=== PATIENT | male | born 1955 | race Caucasian/White ===

== ENCOUNTER 2024-08-15 14:46 | Emergency (ER) | payer OTHER, MEDICAID, SELFPAY ==
[2024-08-15 14:58] VITALS: BP 108/68; PULSE 98; RESP 18; TEMP 36.8; O2SAT 95
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
[2024-08-15 15:44] LABS: Basophils % 0.6 %; Eosinophils # 0.5 10^3/uL (0.0-0.8); Eosinophils % 6.8 %; Hematocrit 33.2 % (37-53); Lymphocytes # 1.9 10^3/uL (0.8-4.8); Lymphocytes % 28.4 %; Mean Corpuscular HGB Conc 31.3 g/dL (30-55); Mean Corpuscular Hemoglobin 28.7 pg (27-33); Mean Corpuscular Volume 91.5 fl (82-101); Mean Platelet Volume 9.3 fL (7.4-10.4); Monocytes # 0.9 10^3/uL (0.2-0.9); Monocytes % 13.1 %; Neutrophils # 3.35 10^3/uL (1.8-7.7); Neutrophils % 50.8 %; Nucleated Red Blood Cells % 0 %; Platelet Count 289 10^3/cmm (157-399); Red Blood Count 3.63 10^6/uL (3.85-5.65); Red Cell Distribution Width 14.8 % (12.1-15.1); White Blood Count 6.59 10^3/uL (3.29-11.43)
--- NOTE | 2024-08-15 16:01 | ECG_ITS ---
[facility] Test Date: 2024-08-15 Pat Name: Tray Denny Department: Room: Gender: Male Electrical Intern: : 1955 Requested By: Kia Saravia Order Number: [id number] Reading MD: Measurements Intervals [place] Rate: 92 P: 57 WI: 159 QRS: 44 QRSD: 81 T: 5 QT: 348 QTc: 431 Interpretive Statements SINUS RHYTHM POSSIBLE ANTERIOR MYOCARDIAL INFARCTION , PROBABLY OLD [30 ms Q WAVE IN V3/V4, OR R < 0.2 mV IN V4] POSSIBLE INFERIOR MYOCARDIAL INFARCTION , PROBABLY OLD [30 ms Q WAVE IN II/aVF] [email or web address]
[2024-08-15 16:21] LABS: Alanine Aminotransferase 6 U/L (0-41); Albumin Level 3.7 g/dL (3.5-5.2); Alkaline Phosphatase 84 U/L (40-130); Anion Gap 17.8 (5-19); Aspartate Amino Transferase 13 U/L (0-40); Blood Urea Nitrogen 7 mg/dL (8-23); Calcium 9.1 mg/dL (8.5-10.5); Carbon Dioxide 21 mmol/L (22-29); Chloride 103 mmol/L (98-107); Globulin 2.9 g/dL (1.3-4.6); Glomerular Filtration Rate 133.6 mL/min (90-130); Glucose 89 mg/dL (65-115); Osmolality Calculated 283 mOsm/kg (285-295); Potassium 3.8 mmol/L (3.5-5.1); Sodium 138 mmol/L (136-145); Thyroid Stimulating Hormone 3.18 uIU/mL (0.27-4.20); Total Bilirubin 0.2 mg/dL (0.15-1.2); Total Protein 6.6 g/dL (6.6-8.7)
[2024-08-15 16:25] LABS: Acetaminophen < 5.0 ug/mL (10-30); Alcohol Level < 10 mg/dL (0-10); Salicylate < 0.3 mg/dL (3-10)
[2024-08-15 16:42] LABS: Bilirubin Urine Negative (Negative); Blood Urine Negative (Negative); Glucose Urine UA Negative (Normal); Ketones Urine Negative (Negative); Leukocyte Esterase Urine Negative (Negative); Nitrate Urine Negative (Negative); Protein Urine Negative (Negative); Specific Gravity, Urine 1.005 (1.005-1.030); Urine Appearance Clear (CLEAR); Urine Color Yellow (Yellow); Urobilinogen Urine 0.2 mg/dL (Negative); pH Urine 6.5 (5-7)
[2024-08-15 16:48] LABS: Amphetamines Screen Urine Negative (Negative); Barbiturates Screen Urine Negative (Negative); Benzodiazepines Screen Urine Negative (Negative); Cocaine Screen Urine Negative (Negative); Opiate Screen Urine Positive (Negative); PCP Screen Urine Negative (Negative); THC Screen Urine Negative (Negative)
[2024-08-15 16:49] LABS: Add Urine Microscopic? YES; Bacteria Urine None Seen /hpf; Hyaline Casts Urine 0-4 /lpf; RBC Urine 0-2 /hpf (0-2); Squamous Epithelial Cell Urine 0-5 /hpf (0-5); WBC Urine 0-5 /hpf (0-5)
[2024-08-15 16:52] LABS: Add Urine Culture? No
[2024-08-15 17:18] LABS: Influenza A NEGATIVE (Negative); Influenza B NEGATIVE (Negative); Respiratory Syncytial Virus Ce NEGATIVE (Negative); SARS-CoV-2 PCR NEGATIVE (Negative)
[2024-08-15] MEDS: HYDROcodone-acetaminophen 5-325 mg Tablet 1 TAB PO (17:31)
[2024-08-15 17:37] VITALS: BP 138/87; PULSE 106; O2SAT 100
[2024-08-15] MEDS: OLANZapine 5 mg TABLET PO (17:56)
[2024-08-15] MEDS: hyDROXYzine 25 mg Capsule PO (17:56)
[2024-08-15 18:00] VITALS: BP 138/87; PULSE 106; O2SAT 100
[2024-08-15] MEDS: LORazepam 1 mg Tablet PO (20:12)
[2024-08-15] MEDS: gabapentin 100 mg Capsule PO (20:13)
[2024-08-16 00:12] VITALS: RESP 16
[2024-08-16] MEDS: ziprasidone 20 mg/mL SDV 10 MG IM (00:12)
[2024-08-16] MEDS: oxyCODONE-APAP 5-325 mg Tablet 1 TAB PO ×2 (00:12→10:42)
--- NOTE | 2024-08-16 02:17 | PC.NURSE ---
at 0000 pt became more aggressive and yelled at staff, provider made aware and meds where ordered. pt is having intermittent confusion and attempting to get up on his own reoriented but pt still yelling intermittently.awaiting placement with a [facility].
--- NOTE | 2024-08-16 09:55 | PC.NURSE ---
Night nurse pulled medication from [facility] as an override and did not associate the administration of that with the current order therefore [facility] this [facility].
--- NOTE | 2024-08-16 15:08 | PC.NURSE ---
Involuntary 96 hour hold rights read and reviewed with patient. Rani from security present during reading of rights. Patient verbalized understandings of rights and copy of rights given to patient.
[2024-08-16] MEDS: haloperidol inj 5 mg/mL INJ 1 mL IM (17:14)
[2024-08-16] MEDS: LORazepam 1 MG/0.5 ML injection IM (17:14)
[2024-08-16 17:49] VITALS: BP 135/87; PULSE 99; TEMP 36.7; O2SAT 97
== END 2024-08-16 20:20 ==
PROVIDERS: Physician Assistant; Emergency Provider Emergency Medicine
DX: Z00.8 Encounter for other general examination (principal); R46.89 Other symptoms and signs involving appearance and behavior
CPT/HCPCS: 80053; 80306; 80307; 81001; 84443; 85025; 87637; 93005; 96372; 99285; J1630; J2060; J3486; J9999